=== PATIENT | female | born 1965 | race Caucasian/White ===

== ENCOUNTER → 2020-09-03 00:28 | Outpatient (CLI) | payer BC, SELFPAY ==
[2020-09-03 17:44] LABS: SARS-CoV-2 RNA PCR Negative
== END ==
PROVIDERS: PCP Internal Medicine; Visit Provider Internal Medicine Gastroenterology
DX: Z01.812 Encounter for preprocedural laboratory examination (principal); Z20.822 Contact with and (suspected) exposure to COVID-19
CPT/HCPCS: C9803; U0003; U0005

== ENCOUNTER 2020-09-06 00:44 | Day surgery (SDC) | payer BC, SELFPAY ==
[2020-08-23 15:58] VITALS: BMI 19.5
[2020-09-06 07:11] VITALS: BP 123/74; PULSE 64; RESP 18; TEMP 36.9; O2SAT 99; BMI 18.8
[2020-09-06] MEDS: LACTATED RINGERS 1,000 ML 150 ML IV CONT (07:23)
--- NOTE | 2020-09-06 07:25 | PM.HPGS ---
History of Present Illness History of Present Illness Consent: Risks, benefits, and alternatives have been discussed and questions answered. Patient agrees to proceed with procedure. Chief complaint: Neoplasm Screening Narrative: Yomaira Machuca is a 54 year old female referred for colon cancer screening. One grandparent had colon cancer Review of Systems Review of Systems: All systems reviewed & are unremarkable except as noted in HPI and below PMFSH Past Medical History Medical History Asthma Chicken pox Depression HLD (hyperlipidemia) Hypercalcemia Hypothyroidism Miscarriage Mononucleosis Pneumonia Polycystic kidney disease Psoriasis Surgical History Surgical History H/O dilation and curettage Family History Family History Father Diabetes mellitus, Onset Age: 55 Hypertension Heart disease Mother Family history of blood dyscrasia Hypertension Sibling Cerebrovascular accident Social History Social History Smoking packs per day: 1 Smoking cigarettes per day: 20.0 Years smoked: 30 Smoking pack-years: 30.00 Smoking status: Current every day smoker Tobacco type: cigarettes Second hand tobacco smoke exposure: No Alcohol intake: never Substance use: current Substance use type: marijuana Living arrangements: with family Spiritual care concerns: No Meds Home Medications and Allergies Home Medications Medication Instructions Recorded Confirmed Type levothyroxine 75 mcg tablet 75 mcg PO DAILY #90 tablet 06/15/20 09/06/20 Rx bupropion HCl 150 mg tablet,12 hr 150 mg PO BID #60 tablet 08/02/20 08/23/20 Rx sustained-release escitalopram oxalate 20 mg tablet 20 mg PO DAILY #90 tablet 08/02/20 08/23/20 Rx oxybutynin chloride 5 mg tablet 5 mg PO BID #60 tablet 08/02/20 08/23/20 Rx Allergies Allergy/AdvReac Type Severity Reaction Status Date / Time No Known Drug Allergies Allergy Unknown none Verified 09/06/20 07:09 Vital Signs Vital Signs - 24 hr 09/06/20 07:11 Temperature 36.9 C Pulse Rate 64 Respiratory Rate 18 Blood Pressure 123/74 Pulse Oximetry 99 Exam Resp: Auscultation: clear to auscultation bilaterally Cardio: Rate: regular rate Rhythm: regular rhythm GI: GI Palp: Yes Soft to palpation and No Tenderness to palpation present (GI) Assessment and Plan Assessment and plan (1) Screening for colon cancer: Code(s): Z12.11 - Encounter for screening for malignant neoplasm of colon Status: Acute Assessment and Plan: Colonoscopy with possible biopsy or polypectomy or cautery or injection of substances.
--- NOTE | 2020-09-06 07:39 | WPDANESEPPF ---
Anes - Initial Pre Proc Eval Procedure: Operation Date: 09/06/20 08:30 Proposed Procedures p Screening Colonoscopy - Piyush Black MD Date/Time: 09/06/20 07:39 Surgeon: Piyush Black MD Pre Op Diagnosis: Neoplasm Screening Patient Data Age: 54 Gender: F Height: 5 ft 6 in Weight: 52.9 kg Last Vital Signs Temp 98.4 F 09/06/20 07:11 Pulse 64 09/06/20 07:11 Resp 18 09/06/20 07:11 BP 123/74 09/06/20 07:11 Pulse Ox 99 09/06/20 07:11 Allergies Allergy/AdvReac Type Severity Reaction Status Date / Time No Known Drug Allergies Allergy Unknown none Verified 09/06/20 07:09 Home Medications Medication Instructions Recorded Confirmed Type levothyroxine 75 mcg tablet 75 mcg PO DAILY #90 tablet 06/15/20 09/06/20 Rx bupropion HCl 150 mg tablet,12 hr 150 mg PO BID #60 tablet 08/02/20 08/23/20 Rx sustained-release escitalopram oxalate 20 mg tablet 20 mg PO DAILY #90 tablet 08/02/20 08/23/20 Rx oxybutynin chloride 5 mg tablet 5 mg PO BID #60 tablet 08/02/20 08/23/20 Rx Patient hx anesthesia problems: none Family hx anesthesia problems: none PMFSH Past Medical History Medical History Asthma Chicken pox Depression HLD (hyperlipidemia) Hypercalcemia Hypothyroidism Miscarriage Mononucleosis Pneumonia Polycystic kidney disease Psoriasis Surgical History Surgical History H/O dilation and curettage Family History Family History Father Diabetes mellitus, Onset Age: 55 Hypertension Heart disease Mother Family history of blood dyscrasia Hypertension Sibling Cerebrovascular accident Social History Social History Smoking packs per day: 1 Smoking cigarettes per day: 20.0 Years smoked: 30 Smoking pack-years: 30.00 Smoking status: Current every day smoker Tobacco type: cigarettes Second hand tobacco smoke exposure: No Alcohol intake: never Substance use: current Substance use type: marijuana Living arrangements: with family Spiritual care concerns: No Anes - Eval Final PreProcedure Day of Procedure 09/06/20 07:39 Patient weight: normal Heart: regular rate and rhythm Lungs: clear to auscultation Airway: Mallampati scale class II Neurological: alert and oriented Last oral intake: >/= 8 hours ASA classification: II Emergent: no Anesthetic plan: proceed Anesthesia type and monitoring: general GIVS and standard monitoring Informed Consent: The patient's anesthetic plan and its attendant risks and benefits were discussed with the patient/family/POA. Questions were solicited and answers provided to the satisfaction of the patient/family/POA.
[2020-09-06 08:33] VITALS: BP 107/71; PULSE 68; RESP 18; O2SAT 100
[2020-09-06 08:43] VITALS: BP 111/78; PULSE 65; RESP 18; O2SAT 100
[2020-09-06 08:51] VITALS: BP 117/83; PULSE 65; RESP 18; O2SAT 100
== END 2020-09-06 08:59 | disposition home or self-care (01) ==
PROVIDERS: PCP Internal Medicine; Visit Provider Internal Medicine Gastroenterology
PROC: 0DJD8ZZ Inspection of Lower Intestinal Tract, Via Natural or Artificial Opening Endoscopic (ICD-10-PCS; CPT 45378; principal; 2020-09-06 08:30)
DX: Z12.11 Encounter for screening for malignant neoplasm of colon (principal); J45.909 Unspecified asthma, uncomplicated; F32.9 Major depressive disorder, single episode, unspecified; E78.5 Hyperlipidemia, unspecified; E83.52 Hypercalcemia; E03.9 Hypothyroidism, unspecified; L40.9 Psoriasis, unspecified; Q61.3 Polycystic kidney, unspecified; F17.210 Nicotine dependence, cigarettes, uncomplicated; F12.90 Cannabis use, unspecified, uncomplicated; K57.30 Diverticulosis of large intestine without perforation or abscess without bleeding
CPT/HCPCS: 45378; J2704; J7120

== ENCOUNTER 2021-03-28 09:21 | Emergency (ER) | payer BC, SELFPAY ==
--- NOTE | ~2021-03-28 | US_ITS ---
EXAMINATION: US pelvic complete w TV DATE: 03/28/2021 11:07 INDICATION: Pelvic pain for one week Comparison:No prior studies for comparison. TECHNIQUE: Multiple transabdominal and endovaginal sonographic images of the pelvis performed. FINDINGS: The uterus measures 5.7 x 3.8 x 2.6 cm. The endometrial complex measures 2 mm. The ovaries are not visualized, likely atrophic. There is no free fluid in the pelvis. There are no abnormal masses seen on either side. IMPRESSION: 1. Unremarkable pelvic ultrasound. Reviewed, dictated and finalized at location B.
--- NOTE | 2021-03-28 10:45 | ED.GENADULT ---
HPI - General Adult General Chief complaint: Abdominal Pain Stated complaint: abd and pelvic pain Time Seen by Provider: 03/28/21 09:46 Source: patient Mode of arrival: ambulatory Limitations: no limitations History of Present Illness HPI narrative: Patient is a 55-year-old woman presents with chief complaint of pelvic pain that has been present since Sunday. She reports that there was also swelling to the area that she has been alternating warm and cool compresses. She states she has also been taking ibuprofen 800 mg as needed. Patient states that she tries to limit ibuprofen use due to her polycystic kidney disease. Patient states that she attempted to call her [employer] Dr. Puga this morning but was told that she cannot be seen for a week so she presented to the emergency department. Patient denies any vaginal bleeding or discharge. She denies any fevers, chills, nausea, vomiting, diarrhea, chest pain, shortness of breath or vaginal trauma. Patient reports having similar symptoms 1 month ago but they resolved without intervention so she did not seek medical evaluation. Patient denies have any history of fibroids or cervical cancer. Related Data Allergies Allergy/AdvReac Type Severity Reaction Status Date / Time No Known Drug Allergies Allergy Unknown none Verified 09/06/20 07:09 Review of Systems Review of Systems: CONSTITUTIONAL: Denies fever, chills, or sweats. EYES: Denies visual changes, redness, or discharge. ENT: Denies rhinorrhea, congestion, sore throat, or otalgia. CARDIOVASCULAR: Denies chest pain, palpitations, or edema. RESPIRATORY: Denies cough or dyspnea. GASTROINTESTINAL: Reports pelvic pain Denies abdominal pain, nausea, vomiting, or diarrhea. GENITOURINARY: Denies dysuria or hematuria. SKIN: Denies rash or itching. MUSCULOSKELETAL: Denies back pain, joint pain, or myalgia. NEUROLOGIC: Denies headache, numbness, dizziness, or weakness. PSYCHIATRIC: Denies anxiety or depression. [facility] Past Medical History Medical History Asthma Chicken pox Depression HLD (hyperlipidemia) Hypercalcemia Hypothyroidism Miscarriage Mononucleosis Pneumonia Polycystic kidney disease Psoriasis Surgical History Surgical History H/O dilation and curettage Family History Family History Father Diabetes mellitus, Onset Age: 55 Hypertension Heart disease Mother Family history of blood dyscrasia Hypertension Sibling Cerebrovascular accident Social History Social History Smoking packs per day: 1 Smoking cigarettes per day: 20.0 Years smoked: 30 Smoking pack-years: 30.00 Smoking status: Current every day smoker Tobacco type: cigarettes Second hand tobacco smoke exposure: No Alcohol intake: never Substance use: current Substance use type: marijuana Spiritual care concerns: No Exam Narrative: GENERAL: Well-appearing, well-nourished, and in no acute distress. Non toxic in appearance. HEAD: Normocephalic, atraumatic. EYES: PERRLA and EOMI.. CHEST: Clear to auscultation. No respiratory distress. No wheezes rales or rhonchi HEART: Regular rate and rhythm. No murmur heard. Normal peripheral pulses. ABDOMEN: Soft, nontender, nondistended, normal active bowel sounds.Reports tenderness with palpation over suprapubic area. PELVIC: Tightness to vaginal opening and pelvic floor. Difficult to advance speculum initially. No abnormal masses, bleeding or discharge noted. The cervix has multiple coloration. no bleeding. EXTREMITIES: Normal range of motion. No edema. SKIN: Warm, dry, no rash. NEURO: No focal deficits. Alert and oriented x3. PSYCH: Normal mood and affect. Course Vital Signs Vital signs: Vital Signs Temperature 97.7 F 03/28/21 11:09 Pulse Rate 64 03/28/21 11:09 Res
[2021-03-28 11:04] LABS: Appearance Urine Clear (Clear); Basophils Absolute Auto 0.1 K/mm3 (0.0-0.1); Basophils Percent Auto 1.3 % (0.2-1.2); Bilirubin Urine Negative (Negative); Blood Urine Negative (Negative); Eosinophils Absolute Auto 0.1 K/mm3 (0-0.3); Glucose Urine UA Negative (Negative); Hematocrit 42.4 % (37.0-47.0); Immature Granulocyte Absolute 0.02 K/mm3 (0.00-0.031); Immature Granulocyte Percent A 0.2 % (0-0.5); Ketones Urine Negative (Negative); Leukocyte Esterase Ur Negative LEU/UL (Negative); Lymphocytes Absolute Auto 2.22 K/mm3 (0.9-3.2); Lymphocytes Percent Auto 27.2 % (18.3-44.2); Mean Corpuscular Hemoglobin 33.2 pg (26-34); Mean Corpuscular Volume 100.5 fl (80-100); Mean Platelet Volume 9.9 fl (7.4-10.4); Monocytes Absolute Auto 0.4 K/mm3 (0.1-0.6); Monocytes Percent Auto 4.8 % (2.6-8.5); Neutrophils Absolute Auto 5.4 K/mm3 (1.3-6.7); Neutrophils Percent Auto 65.5 % (45.5-73.1); Nitrate Urine Negative (Negative); Platelet Count Result 226 k/mm3 (150-375); Protein Urine Negative (Negative); Red Blood Count 4.22 M/mm3 (4.2-5.4); Red Cell Distribution Width 13.5 % (11.5-14.5); Urobilinogen Urine 0.2 mg/dL (<2.0); White Blood Count 8.2 K/mm3 (4.5-10.0); pH Urine 6.5 (5.0-9.0)
[2021-03-28 11:06] LABS: Add Urine Microscopic? NO; Color Urine Colorless (Yellow)
[2021-03-28 11:09] VITALS: BP 127/79; PULSE 64; RESP 14; TEMP 36.5; O2SAT 99
[2021-03-28 11:22] LABS: Alanine Aminotransferase 16 U/L (4-35); Albumin Level 4.4 g/dL (3.5-5.1); Alkaline Phosphatase 68 U/L (38-126); Anion Gap 3 mmol/L (8-16); Aspartate Amino Transferase 23 U/L (14-36); Bilirubin,Total 0.3 mg/dL (0.2-1.3); Blood Urea Nitrogen 21 mg/dL (7-17); Calcium 9.9 mg/dL (8.4-10.2); Carbon Dioxide 28 mmol/L (22-30); Chloride 107 mmol/L (98-107); Estimated CRCL calculation 42 ml/min; Estimated Glomerular Filt Rate 52; Glucose 93 mg/dL (65-110); Potassium 4.3 mmol/L (3.4-5.0); Sodium 138 mmol/L (137-145)
== END 2021-03-28 13:12 | disposition home or self-care (01) ==
PROVIDERS: Physician Assistant; Emergency Provider Emergency Medicine; PCP Internal Medicine
DX: R10.2 Pelvic and perineal pain (principal); Q61.3 Polycystic kidney, unspecified; E78.5 Hyperlipidemia, unspecified; E03.9 Hypothyroidism, unspecified; J45.909 Unspecified asthma, uncomplicated; Z87.01 Personal history of pneumonia (recurrent); F17.210 Nicotine dependence, cigarettes, uncomplicated; L40.9 Psoriasis, unspecified
CPT/HCPCS: 36415; 76830; 76856; 80053; 81003; 81025; 85025; 99284

== ENCOUNTER → 2022-02-24 11:16 | Outpatient (CLI) | payer BC, SELFPAY ==
--- NOTE | ~2022-02-24 | XR_ITS ---
XR hip RT min 2V DATE: 02/24/2022 11:42 INDICATION: Right hip pain TECHNIQUE: AP, lateral, crosstable lateral views of right hip COMPARISON: None FINDINGS: No fracture or dislocation, avascular necrosis or bone destruction. Right hip joint space i s well preserved. The pubic symphysis and right sacroiliac joint are intact. Degenerative disc disease is noted at L5-S1. IMPRESSION: No significant radiographic abnormality of right hip Reviewed, dictated and finalized at location A.
== END ==
PROVIDERS: PCP Internal Medicine; Visit Provider Nurse Practitioner
DX: M25.551 Pain in right hip (principal)
CPT/HCPCS: 73502

== ENCOUNTER 2025-05-29 09:06 | Outpatient (CLI) | payer OTHER, SELFPAY ==
--- OUTSIDE RECORDS SUMMARY | 2025-05-29 09:19 | XMS_ITS | Clinical Summary ---
Author Organization [facility] Address [address] [place] [phone] Phone Care Team Providers Care Day Guard Name Role Phone Unavailable Primary Care Provider Unavailabl e Medications levothyroxine (SYNTHROID, LEVOTHROID) 75 MCG tablet 1 tab/cap qday 0 12/10/2016 Active Active Problems Problem Noted Date Diagnosed Date Abnormal result of kidney function study 017 Adult polycystic kidney 12/10/2016 Other specified hypothyroidism 12/10/2016 Other asthma 12/10/2016 Family History Medical History Relation Comments Diabetes mellitus Father Heart disease Father Kidney disease Sibling Kidney stone Neg Hx Relation Status Comments Father Sibling Social History Tobacco Use Types Packs/Day Years Used Date Smoking Tobacco: Never Assessed Comments Unknown Sex and Gender Information Value Date Recorded Sex Assigned at Not on file Legal Sex Female 7:25 AM [facility] Gender Identity Not on file Sexual Orientation Not on file Last Filed Vital Signs Vital Sign Reading Time Taken Comments Blood Pressure 124/70 03/07/2017 12:01 AM CDT Si tting, Right Pulse - - Temperature 37 C (98.6 F) 03/07/2017 12:01 AM CDT Respiratory Rate - - Oxygen Saturation - - Inhaled Oxygen Concentration - - Weight 53.5 kg (118 lb) 03/07/2017 12:01 AM CDT Height 165.1 cm (5' 5) 03/07/2017 12:01 AM CDT Body Mass Index 19.64 03/07/2017 12:01 AM CDT Plan of Treatment Not on file
[2025-05-29 12:56] LABS: Hematocrit 43.6 % (37.0-47.0); Hemoglobin 14.1 g/dL (12.0-15.0); Immature Granulocyte Percent A 0.3 % (0-0.5); Lymphocytes Absolute Auto 2.78 K/mm3 (0.9-3.2); Mean Corpuscular HGB Conc 32.3 g/dl (32-36); Mean Corpuscular Hemoglobin 32.1 pg (26-34); Mean Corpuscular Volume 99.3 fl (80-100); Nucleated Red Blood Cells Absolute Auto 0.000 K/mm3 (0.0-0.012); Nucleated Red Blood Cells Perc 0.0 % (0.0-0.2); Platelet Count Result 269 k/mm3 (150-375); Red Blood Count 4.39 M/mm3 (4.2-5.4); White Blood Count 7.8 K/mm3 (4.5-10.0)
[2025-05-29 13:13] LABS: Alanine Aminotransferase 16 U/L (6-35); Albumin Level 4.3 g/dL (3.5-5.1); Alkaline Phosphatase 76 U/L (38-126); Anion Gap 6 mmol/L (4-12); Aspartate Amino Transferase 36 U/L (14-36); Bilirubin,Total 0.5 mg/dL (0.2-1.3); Blood Urea Nitrogen 23 mg/dL (7-17); Calcium 10.6 mg/dL (8.4-10.2); Carbon Dioxide 26 mmol/L (22-30); Chloride 107 mmol/L (98-107); Cholesterol 193 mg/dL (0-200); Estimated Glomerular Filt Rate 47; Glucose 76 mg/dL (65-110); HDL Direct 69 mg/dL; Potassium 4.3 mmol/L (3.4-5.0); Sodium 139 mmol/L (137-145); Total Protein 7.1 g/dL (6.3-8.2); Triglycerides 78 mg/dL (<150)
[2025-05-29 13:48] LABS: Thyroid Stimulating Hormone 0.478 uIU/mL (0.465-4.680)
== END 2025-05-29 09:07 | disposition home or self-care (01) ==
LOC: ANHGOSHLAB 09:07
PROVIDERS: PCP Internal Medicine; Visit Provider Nurse Practitioner
DX: E78.2 Mixed hyperlipidemia (principal); E03.9 Hypothyroidism, unspecified; E55.9 Vitamin D deficiency, unspecified; Z13.29 Encounter for screening for other suspected endocrine disorder
CPT/HCPCS: 36415; 80053; 80061; 82306; 84443; 85025